=== PATIENT | male | born 1975 | race American Indian/Alaskan Native ===

== ENCOUNTER 2016-10-01 01:09 | Emergency (ER) | payer SELFPAY ==
[2016-10-01 02:12] VITALS: BP 148/96
[2016-10-01 02:44] LABS: Basophils % (Auto) 0.5 % (0.0-1.8); Eosinophils % (Auto) 2.5 % (0.0-4.3); Hematocrit 47.1 % (35.5-45.6); Hemoglobin 15.5 gm/dl (11.8-15.2); Mean Corpuscular HGB Conc 33 % (32-34); Mean Corpuscular Hemoglobin 27 pg (28-32); Mean Corpuscular Volume 82 fl (84-94); Platelet Count 195 K/mm3 (140-440); Red Blood Count 5.72 M/mm3 (3.65-5.03); White Blood Count 6.2 K/mm3 (4.5-11.0)
[2016-10-01 02:52] LABS: INR 1.04 (0.87-1.13)
[2016-10-01 02:53] LABS: Partial Thromboplastin Time 31.1 Sec. (24.2-36.6)
[2016-10-01 02:56] LABS: Anion Gap 19 mmol/L; Blood Urea Nitrogen 16 mg/dL (9-20); Calcium 9.5 mg/dL (8.4-10.2); Carbon Dioxide 27 mmol/L (22-30); Chloride 96.4 mmol/L (98-107); Glucose 92 mg/dL (75-100); Sodium 138 mmol/L (137-145)
--- NOTE | 2016-10-02 19:45 | ED Elopement Review ---
ED Pt Elopement review - Results review Lab results: Laboratory Tests 10/01/16 10/01/16 10/01/16 02:22 02:22 02:22 WBC 6.2 RBC 5.72 H Hgb 15.5 H Hct 47.1 H MCV 82 L MCH 27 L MCHC 33 RDW 14.0 Plt Count 195 Lymph % (Auto) 37.1 H [place] % (Auto) 12.1 H Eos % (Auto) 2.5 Baso % (Auto) 0.5 Lymph # 2.3 [place] # 0.7 Eos # 0.2 Baso # 0.0 Seg Neutrophils % 47.8 Seg Neutrophils # 2.9 PT 13.5 INR 1.04 APTT 31.1 Thrombin Time Sodium 138 Potassium 4.0 Chloride 96.4 L Carbon Dioxide 27 Anion Gap 19 BUN 16 Creatinine 1.0 Estimated GFR > 60 BUN/Creatinine Ratio 16.00 Glucose 92 Calcium 9.5 Troponin T < 0.010 10/01/16 02:22 WBC RBC Hgb Hct MCV MCH MCHC RDW Plt Count Lymph % (Auto) [place] % (Auto) Eos % (Auto) Baso % (Auto) Lymph # [place] # Eos # Baso # Seg Neutrophils % Seg Neutrophils # PT INR APTT Thrombin Time 16.3 Sodium Potassium Chloride Carbon Dioxide Anion Gap BUN Creatinine Estimated GFR BUN/Creatinine Ratio Glucose Calcium Troponin T - Call Back decision Pt Call Back Decision: No action required
== END 2016-10-01 05:30 | disposition left against medical advice (07) ==
LOC: ED 01:09
DX: R04.0 Epistaxis (principal); R42 Dizziness and giddiness; R51 Headache; Z53.21 Procedure and treatment not carried out due to patient leaving prior to being seen by health care provider
CPT/HCPCS: 36415; 80048; 84484; 85025; 85610; 85670; 85730; 93005; 93010